=== PATIENT | male | born 1955 | race Caucasian/White ===

== ENCOUNTER 2018-07-05 11:36 | Emergency (ER) | payer OTHER ==
[2018-07-05] MEDS ORDERED: TDAP ADULT 0.5 ML INJ (BOOSTRIX) IM ONE (11:41)
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
[2018-07-05] MEDS ORDERED: KETAMINE 500 MG/10 ML VIAL ONE (11:46)
[2018-07-05] MEDS ORDERED: HYDROmorphONE/DILAUDID 2 MG/ML INJ IVP ONE (11:48)
[2018-07-05] MEDS ORDERED: KETAMINE 200 MG/20 ML VIAL IVP ONE (11:48)
[2018-07-05] MEDS ORDERED: HYDROmorphONE/DILAUDID 1 MG/ML INJ ONE (11:49)
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
[2018-07-05 13:48] VITALS: BP 114/78
[2018-07-05] MEDS ORDERED: OXYCODONE/APAP 5/325 TAB PO ONE (14:12)
== END 2018-07-05 17:50 | disposition home or self-care (01) ==
LOC: EDUNIT#
DX: S71.132A Puncture wound without foreign body, left thigh, initial encounter (principal); W34.00XA Accidental discharge from unspecified firearms or gun, initial encounter; Y92.008 Other place in unspecified non-institutional (private) residence as the place of occurrence of the external cause; Z23 Encounter for immunization
CPT/HCPCS: 96374; J1170